=== PATIENT | male | born 1990 | race Caucasian/White ===

== ENCOUNTER 2020-01-18 11:36 | Emergency (ER) | payer BC ==
[~2020-01-18] VITALS: Ht 180.3 cm; Wt 68.0 kg
[2020-01-18] MEDS ORDERED: HYDROMORPHONE 2 MG/1 ML DISP.SYRIN ONE (11:59)
[2020-01-18] MEDS ORDERED: ONDANSETRON 4 MG/2 ML VIAL ONE (11:59)
[2020-01-18] MEDS ORDERED: HYDROMORPHONE 1 MG/1 ML DISP.SYRIN IM ONE (12:00)
[2020-01-18] MEDS ORDERED: ONDANSETRON 4 MG/2 ML VIAL IM ONE (12:00)
--- NOTE | 2020-01-18 12:02 | NUR ---
Patient is AOx4 and is now for discharge to home by Dr Jackson. Patient wants to wait a little longer in ER and for his ride.
--- NOTE | 2020-01-18 12:08 | NUR ---
Patient wants more pain medicine. I explained to patient that the pain medicines need time to work and that it may not lower the pain level to zero.
--- NOTE | 2020-01-18 12:19 | NUR ---
Patient wants more pain medicine, Dr Jackson notified.
--- NOTE | 2020-01-18 12:20 | NUR ---
Patient's written and verbal discharge instructions were given@[id number] to patient by cupola charger Sepi before the narcotic pain shot was given. Patient verbalized understanding & compliance of instructions. Stressed follow up with ortho doctor or return to ER for worsening s/s.
--- NOTE | 2020-01-18 12:21 | NUR ---
Patient slowly ambulated out of ER,+steady gait. Patient said that he is not driving.
== END 2020-01-18 12:21 | disposition home or self-care (01) ==
LOC: ER 11:36
DX: M50.223 Other cervical disc displacement at C6-C7 level (principal); M51.25 Other intervertebral disc displacement, thoracolumbar region
CPT/HCPCS: 96372; 99283; J1170; J2405; A4663